=== PATIENT | female | born 1975 | race Caucasian/White ===

== ENCOUNTER 2023-02-15 00:09 | Day surgery (SDC) | payer OTHER, SELFPAY ==
--- NOTE | 2023-02-15 07:32 | P.PNAN_ITS ---
Anes - Initial Pre Proc Eval Procedure: Operation Date: 02/15/23 09:15 Proposed Procedures p Screening Colonoscopy - Sam Frost MD Date/Time: 02/15/23 07:32 Surgeon: Sam Frost MD Pre Op Diagnosis: neoplasm screening Patient Data Age: 48 Gender: F Height: 1.78 m Weight: 63.5 kg Allergies Allergy/AdvReac Type Severity Reaction Status Date / Time No Known Allergies Allergy Unverified 02/15/23 08:05 Home Medications Medication Instructions Recorded Confirmed Type Probiotic with Prebiotic 1 cap PO DAILY 02/10/23 02/10/23 History fluticasone propionate 50 1 - 2 spray intranasal PRN PRN 02/10/23 02/10/23 History mcg/actuation nasal Allergy Symptoms spray,suspension (Aller-Abhishek) montelukast 10 mg tablet 10 mg PO DAILY 02/10/23 02/10/23 History ssrjuhqaviai-Ju-hjen-minerals 1 tablet PO DAILY 02/10/23 02/10/23 History norethindrone 1.5 mg-ethinyl 1 tablet PO DAILY 02/10/23 02/10/23 History estradiol 30 mcg(21)/iron 75 mg(7) tablet (Microgestin Fe 1.5/30 (28)) omeprazole 20 mg tablet,delayed 20 mg PO DAILY 02/10/23 02/10/23 History release Patient hx anesthesia problems: none Family hx anesthesia problems: none Results Review: All pre-operative results and documents have been reviewed as part of the pre- operative evaluation. [facility] Past Medical History Medical History (Updated 02/12/23 @ 14:54 by Cody oS DO) GERD (gastroesophageal reflux disease) Surgical History Surgical History (Updated 02/12/23 @ 14:54 by Cody So DO) History of cholecystectomy Social History Social History Smoking status: Never smoker Alcohol intake: current Drinks per week: 3 Alcohol use details: BEERS/DRINKS Substance use: never Substance use type: does not use Living arrangements: with family Spiritual care concerns: No Anes - Eval Final PreProcedure Day of Procedure 02/15/23 07:32 Patient weight: normal Heart: regular rate and rhythm Lungs: clear to auscultation and normal air movement Airway: Mallampati scale class II Neurological: alert and oriented Last oral intake: >/= 8 hours ASA classification: II Emergent: no Anesthetic plan: proceed Anesthesia type and monitoring: general GIVS and standard monitoring Results Review: All pre-operative results and documents have been reviewed as part of the pre- operative evaluation. Informed Consent: The patient's anesthetic plan and its attendant risks and benefits were discussed with the patient/family/POA. Questions were solicited and answers provided to the satisfaction of the patient/family/POA.
[2023-02-15 08:06] VITALS: BP 123/40; PULSE 78; RESP 16; TEMP 36.2; O2SAT 100
--- NOTE | 2023-02-15 08:38 | P.HP_ITS ---
History of Present Illness History of Present Illness Consent: Risks, benefits, and alternatives have been discussed and questions answered. Patient agrees to proceed with procedure. Chief complaint: neoplasm screening Narrative: Francisca Rust is a 48 year old female Presents for screening colonoscopy. Patient's current weight appetite and bowel movements are normal. Patient denies abdominal pain. She has had no bleeding. Family history is noncontri butory. Review of Systems Review of Systems: Review of systems noncontributory. [facility] Past Medical History Medical History (Updated 02/15/23 @ 08:39 by Sam Frost MD) GERD (gastroesophageal reflux disease) Surgical History Surgical History (Updated 02/12/23 @ 14:54 by Cody So DO) History of cholecystectomy Social History Social History Smoking status: Never smoker Alcohol intake: current Drinks per week: 3 Alcohol use details: BEERS/DRINKS Substance use: never Substance use type: does not use Living arrangements: with family Spiritual care concerns: No Meds Home Medications and Allergies Home Medications Medication Instructions Recorded Confirmed Type Probiotic with Prebiotic 1 cap PO DAILY 02/10/23 02/10/23 History fluticasone propionate 50 1 - 2 spray intranasal PRN PRN 02/10/23 02/10/23 History mcg/actuation nasal Allergy Symptoms spray,suspension (Aller-Abhishek) montelukast 10 mg tablet 10 mg PO DAILY 02/10/23 02/10/23 History oumjmidbdrax-Cb-ceie-minerals 1 tablet PO DAILY 02/10/23 02/10/23 History norethindrone 1.5 mg-ethinyl 1 tablet PO DAILY 02/10/23 02/10/23 History estradiol 30 mcg(21)/iron 75 mg(7) tablet (Microgestin Fe 1.5/30 (28)) omeprazole 20 mg tablet,delayed 20 mg PO DAILY 02/10/23 02/10/23 History release Allergies Allergy/AdvReac Type Severity Reaction Status Date / Time No Known Allergies Allergy Unverified 02/15/23 08:05 Vital Signs Vital Signs - 24 hr 02/15/23 08:06 Temperature 97.1 F L Pulse Rate 78 Respiratory Rate 16 Blood Pressure 123/40 L Pulse Oximetry 100 Oxygen Delivery Room Air Exam Narrative: Physical exam reveals patient to be alert. Vital signs stable. HEENT exam is unremarkable. Patient is anicteric. Lungs are clear to auscultation and percussion. Heart is without murmur or extra sounds. Abdomen bowel sounds are present soft nontender with no organomegaly. Digital external rectal exam is normal. Assessment and Plan Assessment and plan (1) Encounter for screening colonoscopy: Code(s): Z12.11 - Encounter for screening for malignant neoplasm of colon Status: Acute Assessment and Plan: Patient presents for neoplasia screening colonoscopy. She appears to be at average risk for colon polyps. Further recommendations may be given after endoscopy.
[2023-02-15] MEDS: LACTATED RINGERS 1,000 ML 150 ML IV CONT (08:46)
[2023-02-15 09:41] VITALS: BP 93/47; PULSE 77; RESP 15; O2SAT 100
[2023-02-15 09:51] VITALS: BP 91/48; PULSE 71; RESP 23; O2SAT 100
[2023-02-15 10:01] VITALS: BP 105/50; PULSE 66; RESP 22; O2SAT 100
== END 2023-02-15 10:09 | disposition home or self-care (01) ==
PROVIDERS: PCP Family Medicine; Visit Provider Internal Medicine Gastroenterology
PROC: 0DJD8ZZ Inspection of Lower Intestinal Tract, Via Natural or Artificial Opening Endoscopic (ICD-10-PCS; CPT 45378; principal; 2023-02-15 09:15)
DX: Z12.11 Encounter for screening for malignant neoplasm of colon (principal); K64.8 Other hemorrhoids; K21.9 Gastro-esophageal reflux disease without esophagitis
CPT/HCPCS: 45378; J2704; J7120

== ENCOUNTER → 2023-04-26 11:29 | Outpatient (CLI) | payer OTHER, SELFPAY ==
--- NOTE | ~2023-04-26 | MM_ITS ---
EXAMINATION: MM screening roxana BI w rené HISTORY: Screening mammogram TECHNIQUE: Craniocaudal and mediolateral oblique 3-D tomosynthesis images were obtained and synthetic 2-D images were generated. CAD analysis was submitted and interpreted. COMPARISON: No prior mammogram is available for comparison at this institution. BREAST PARENCHYMAL COMPOSITION: The breasts are heterogeneously dense, which may obscure small masses . FINDINGS: There is mild asymmetry which is most likely benign fibroglandular asymmetry. Comparison wi th prior mammograms from [facility] is recommended. There are occasional benign calcifications of the left breast. No malignant calcification, reproducib le suspicious mass or architectural distortion, skin thickening or retraction of either breast is det ected. IMPRESSION: 1. Probable benign fibroglandular asymmetry 2. Comparison with prior mammograms is recommended to document stability BI-RADS Category 0: Incomplete: Needs additional imaging evaluation: Comparison with prior mammogram examinations Reviewed, dictated and finalized at location A.
== END ==
PROVIDERS: PCP Nurse Practitioner; Visit Provider Nurse Practitioner
DX: Z12.31 Encounter for screening mammogram for malignant neoplasm of breast (principal); R92.8 Other abnormal and inconclusive findings on diagnostic imaging of breast
CPT/HCPCS: 77063; 77067

== ENCOUNTER 2023-08-09 02:04 | Day surgery (SDC) | payer OTHER, SELFPAY ==
[2023-08-03 14:45] VITALS: BMI 21.4
--- NOTE | 2023-08-06 09:28 | SUR.OPER ---
Patient called regarding upcoming procedure. Message left on patient's voicemail regarding preop instructions, appointment times, and procedure prep.
--- NOTE | 2023-08-06 15:02 | PM.HPGS ---
History of Present Illness History of Present Illness Consent: Risks, benefits, and alternatives have been discussed and questions answered. Patient agrees to proceed with procedure. Chief complaint: GERD Narrative: Francisca Rust is a 48 year old female Referred for investigation of epigastric pain. This began when her mother became ill. She has avoided spicy foods. She is now taking omeprazole 40 mg per day. Review of Systems Review of Systems: All systems reviewed & are unremarkable except as noted in HPI and below PMFSH Past Medical History Medical History GERD (gastroesophageal reflux disease) Surgical History Surgical History History of cholecystectomy Social History Social History Smoking status: Never smoker Alcohol intake: never Drinks per week: 3 Alcohol use details: SOCIALLY Substance use: never Substance use type: does not use Living arrangements: with family Spiritual care concerns: No Meds Home Medications and Allergies Home Medications Medication Instructions Recorded Confirmed Type Probiotic with Prebiotic 1 cap PO DAILY 02/10/23 08/09/23 History fluticasone propionate 50 1 - 2 spray intranasal PRN PRN 02/10/23 08/09/23 History mcg/actuation nasal Allergy Symptoms spray,suspension (Aller-Abhishek) montelukast 10 mg tablet 10 mg PO DAILY 02/10/23 08/09/23 History bccrqfazltig-Ef-pvxa-minerals 1 tablet PO DAILY 02/10/23 08/09/23 History norethindrone 1.5 mg-ethinyl 1 tablet PO DAILY 02/10/23 08/09/23 History estradiol 30 mcg(21)/iron 75 mg(7) tablet (Microgestin Fe 1.5/30 (28)) omeprazole 20 mg tablet,delayed 20 mg PO DAILY 02/10/23 08/09/23 History release Allergies Allergy/AdvReac Type Severity Reaction Status Date / Time No Known Allergies Allergy Verified 08/09/23 12:29 Exam Const: General: alert Orientation/consciousness: patient oriented x3 Resp: Auscultation: clear to auscultation bilaterally Cardio: Rhythm: regular rhythm GI: GI Palp: Yes Soft to palpation and No Tenderness to palpation present (GI) Neuro: General: patient oriented x3 Assessment and Plan Assessment and plan (1) Epigastric pain: Code(s): R10.13 - Epigastric pain Status: Acute Assessment and Plan: EGD with possible biopsy or dilatation or cautery.
[2023-08-09 12:24] VITALS: BP 118/77; PULSE 76; RESP 18; TEMP 36.1; O2SAT 100; BMI 21.0
--- NOTE | 2023-08-09 12:33 | P.PNAN_ITS ---
Anes - Initial Pre Proc Eval Procedure: Operation Date: 08/09/23 13:30 Proposed Procedures p Esophagogastroduodenoscopy - Abner iMllan MD Date/Time: 08/09/23 12:33 Surgeon: Abner Millan MD Pre Op Diagnosis: GERD Patient Data Age: 48 Gender: F Height: 1.78 m Weight: 68 kg Allergies Allergy/AdvReac Type Severity Reaction Status Date / Time No Known Allergies Allergy Verified 08/09/23 12:29 Home Medications Medication Instructions Recorded Confirmed Type Probiotic with Prebiotic 1 cap PO DAILY 02/10/23 08/09/23 History fluticasone propionate 50 1 - 2 spray intranasal PRN PRN 02/10/23 08/09/23 History mcg/actuation nasal Allergy Symptoms spray,suspension (Aller-Abhishek) montelukast 10 mg tablet 10 mg PO DAILY 02/10/23 08/09/23 History ydxynxswbgyq-On-omyu-minerals 1 tablet PO DAILY 02/10/23 08/09/23 History norethindrone 1.5 mg-ethinyl 1 tablet PO DAILY 02/10/23 08/09/23 History estradiol 30 mcg(21)/iron 75 mg(7) tablet (Microgestin Fe 1.5/30 (28)) omeprazole 20 mg tablet,delayed 20 mg PO DAILY 02/10/23 08/09/23 History release Patient hx anesthesia problems: none Family hx anesthesia problems: none Results Review: All pre-operative results and documents have been reviewed as part of the pre- operative evaluation. [facility] Past Medical History Medical History (Updated 08/06/23 @ 15:03 by Abner Millan MD) GERD (gastroesophageal reflux disease) Surgical History Surgical History (Updated 02/12/23 @ 14:54 by Cody So DO) History of cholecystectomy Social History Social History Smoking status: Never smoker Alcohol intake: never Drinks per week: 3 Alcohol use details: SOCIALLY Substance use: never Substance use type: does not use Living arrangements: with family Spiritual care concerns: No Anes - Eval Final PreProcedure Day of Procedure 08/09/23 12:33 Patient weight: normal Heart: regular rate and rhythm Lungs: clear to auscultation Airway: Mallampati scale class II Neurological: alert and oriented Last oral intake: >/= 8 hours ASA classification: II Emergent: no Anesthetic plan: proceed Anesthesia type and monitoring: general GIVS and standard monitoring Results Review: All pre-operative results and documents have been reviewed as part of the pre- operative evaluation. Informed Consent: The patient's anesthetic plan and its attendant risks and benefits were discussed with the patient/family/POA. Questions were solicited and answers provided to the satisfaction of the patient/family/POA.
[2023-08-09] MEDS: LACTATED RINGERS 1,000 ML 150 ML IV CONT (12:40)
[2023-08-09 13:05] VITALS: BP 98/44; PULSE 73; RESP 18; O2SAT 98
[2023-08-09 13:15] VITALS: BP 103/60; PULSE 70; RESP 27; O2SAT 97
[2023-08-09 13:25] VITALS: BP 112/66; PULSE 61; RESP 18; O2SAT 100
== END 2023-08-09 13:31 | disposition home or self-care (01) ==
PROVIDERS: PCP Family Medicine; Visit Provider Internal Medicine Gastroenterology
PROC: 0DJ08ZZ Inspection of Upper Intestinal Tract, Via Natural or Artificial Opening Endoscopic (ICD-10-PCS; CPT 43235; principal; 2023-08-09 13:30)
DX: R10.13 Epigastric pain (principal); K21.9 Gastro-esophageal reflux disease without esophagitis
CPT/HCPCS: 43239; 88305; J2704; J7120

== ENCOUNTER → 2023-08-23 08:17 | Outpatient (CLI) | payer OTHER, SELFPAY ==
--- NOTE | ~2023-08-23 | CT_ITS ---
EXAMINATION: CT abdomen pelvis w con INDICATION: Diarrhea and abdominal pain TECHNIQUE: Computed tomographic images of the abdomen and pelvis were obtained after the administrati on of 100 cc of Omnipaque 350 intravenous contrast. The dose-length product (DLP) was 433.58 mGy-cm. Automated exposure control and iterative reconstruction technique were employed. COMPARISON: None available FINDINGS: Minimal dependent atelectasis is present in the lung bases. The heart size is normal. There is a 3.6 cm mass of the left hepatic lobe with interrupted peripheral nodular enhancement, consisten t with a hemangioma. No suspicious liver mass is identified. Changes of cholecystectomy are noted. Pu nctate calcifications in an otherwise normal spleen likely represent healed granulomatous disease. Th e pancreas and adrenal glands are normal. The kidneys are unremarkable. No pathologically enlarged ab dominal or pelvic lymph nodes are identified. No free intraperitoneal gas or evidence of bowel obstru ction. There is mild lumbar spondylosis. A moderate volume of colonic stool is present. Uterine fibro ids measuring up to 2.6 cm are noted. IMPRESSION: 1. No CT correlate for the patient's symptoms. Reviewed, dictated and finalized at location B. P MANAGER
== END ==
PROVIDERS: PCP Family Medicine; Visit Provider Family Medicine
DX: R19.7 Diarrhea, unspecified (principal)
CPT/HCPCS: 74177; Q9967

== ENCOUNTER 2024-12-29 06:53 | Outpatient (CLI) | payer OTHER, SELFPAY ==
--- NOTE | ~2024-12-29 | XR_ITS ---
XR hip BI 2V w AP pelvis 12/29/2024 07:08 Indication: Hip pain Procedure: AP pelvis and 2 views each Comparison: No prior studies for comparison. Findings: Pelvic rings are intact. Sacral foramen are symmetric. No fracture, subluxation or dislocat ion. No soft tissue abnormality. No foreign bodies. Impression: 1: No significant bone or joint abnormality. Reviewed, dictated and finalized at location A. Impression: 1: No significant bone or joint abnormality.
== END 2024-12-29 06:54 | disposition home or self-care (01) ==
PROVIDERS: PCP Family Medicine; Visit Provider Family Medicine
DX: M25.551 Pain in right hip (principal); M25.552 Pain in left hip
CPT/HCPCS: 73521

== ENCOUNTER 2025-03-16 07:17 | Outpatient (CLI) | payer OTHER, SELFPAY ==
--- NOTE | ~2025-03-16 | MM_ITS ---
EXAMINATION: MM screening roxana BI w rené HISTORY: Screening mammogram TECHNIQUE: Craniocaudal and mediolateral oblique 3-D tomosynthesis images were obtained and synthetic 2-D images were generated. CAD analysis was submitted and interpreted. COMPARISON: 04/26/2023, 01/23/2022, 01/16/2021 BREAST PARENCHYMAL COMPOSITION:Dense: The breasts are heterogeneously dense, which may obscure small masses. FINDINGS: Stable low-density mass is at the left breast. There is a new asymmetry in the outer right breast. No suspicious microcalcifications. IMPRESSION: Outer right breast asymmetry. Spot compression views and possibly ultrasound are recommended for furt her evaluation. BI-RADS Category 0: Incomplete: Needs additional imaging evaluation. Reviewed, dictated and finalized at [facility]. IMPRESSION: Outer right breast asymmetry. Spot compression views and possibly ultrasound ar e recommended for further evaluation. BI-RADS Category 0: Incomplete: Needs additional imaging evaluation.
== END 2025-03-16 07:18 | disposition home or self-care (01) ==
LOC: MICIMG 07:17
PROVIDERS: PCP Family Medicine; Visit Provider Nurse Practitioner
DX: Z12.31 Encounter for screening mammogram for malignant neoplasm of breast (principal); R92.8 Other abnormal and inconclusive findings on diagnostic imaging of breast
CPT/HCPCS: 77063; 77067

== ENCOUNTER 2025-05-21 09:14 | Outpatient (CLI) | payer OTHER, SELFPAY ==
--- NOTE | ~2025-05-21 | MMUS_ITS ---
EXAMINATION: US breast RT limited, MM diagnostic roxana RT w rené HISTORY: Inconclusive mammogram TECHNIQUE: Additional images of the right breast]] were performed using full field digital mammography. 3-D tomosynthesis were also obtained and synthetic 2- D images were generated. CAD analysis was submitted and interpreted. High- resolution right breast ultrasound was performed.] ] COMPARISON: Mammograms from 03/16/2025 and 04/26/2023 BREAST PARENCHYMAL COMPOSITION: The breasts are heterogeneously dense, which may obscure small masses. FINDINGS: MAMMOGRAPHIC FINDINGS: Redemonstration of asymmetry in the outer right breast, middle depth. No convincing sonographic correlate. The finding is probably benign. ULTRASOUND: There is a 10 x 5 x 4 mm hypoechoic cyst versus solid mass in the right breast at the 12:00 position middle depth, 3 cm from nipple. The finding is wider than tall. Margins are well-circumscribed. No internal color Doppler flow. No posterior acoustic shadowing. The finding is probably benign. There is an 8 x 7 x 6 mm hypoechoic cyst versus solid mass in the right breast in the 12:00 position 2 cm from the nipple. The finding is wider than tall. Margins are partially circumscribed. No internal color Doppler flow. No posterior acoustic shadowing. The findings probably benign. There is a 4 x 4 by 3 mm hypoechoic cyst versus solid mass in the right breast at the 9:00 position 3 cm from the nipple. Margins are partially circumscribed. No internal color Doppler flow. No posterior acoustic shadowing. The findings probably benign. IMPRESSION/RECOMMENDATION: 1. Probably benign findings in the right breast. A diagnostic right breast mammogram and a diagnostic right breast in 6 months is recommended. BI-RADS 3-Probably benign-Short interval follow-up suggested. Reviewed, dictated and finalized at location Q. IMPRESSION/RECOMMENDATION: 1. Probably benign findings in the right breast. A diagnostic right breast mamm ogram and a diagnostic right breast in 6 months is recommended. BI-RADS 3-Probably benign-Short interval follow-up suggested. IMPRESSION/RECOMMENDATION: 1. Probably benign findings in the right breast. A diagnostic right breast mamm ogram and a diagnostic right breast in 6 months is recommended. BI-RADS 3-Probably benign-Short interval follow-up suggested.
== END 2025-05-21 09:15 | disposition home or self-care (01) ==
LOC: MICIMG 09:14
PROVIDERS: PCP Family Medicine; Visit Provider Obstetrics & Gynecology Gynecology
DX: R92.8 Other abnormal and inconclusive findings on diagnostic imaging of breast (principal)
CPT/HCPCS: 76642; 77061; 77065; G0279

== ENCOUNTER 2025-08-20 08:17 | Outpatient (CLI) | payer OTHER, SELFPAY ==
--- NOTE | ~2025-08-20 | CT_ITS ---
EXAMINATION: CT diagnostic chest wo con DATE: 08/20/2025 08:30 INDICATION: Pneumothorax TECHNIQUE: Computed tomography (CT) of the chest was performed without intravenous contrast. Additional 3D reconstructions utilizing coronal maximum intensity projection (MIP) were performed. Automated exposure control and iterative reconstruction technique were employed. The dose-length product was 17 0.94 mGy-cm. COMPARISON: None FINDINGS: Tiny calcified nodules in the right upper lobe and calcified right hilar and mediastinal lymph nodes consistent with old granulomatous disease. Lungs are otherwise clear with no pneumonia, pulmonary edema or other pulmonary infiltrates. No pleural effusion or pneumothorax. Thoracic aorta is normal in c aliber. No pathologically enlarged thoracic lymphadenopathy. Cholecystectomy clips at the gallbladder fossa. Mild to moderate thoracic spondylosis with chronic appearing minimal anterior wedging of several mid to lower thoracic vertebral bodies. IMPRESSION: 1. No pneumothorax or other acute cardiopulmonary disease. Reviewed, dictated and finalized at location A. [employer] OFFICER
== END 2025-08-20 08:18 | disposition home or self-care (01) ==
PROVIDERS: PCP Family Medicine; Visit Provider Family Medicine
DX: J93.9 Pneumothorax, unspecified (principal)
CPT/HCPCS: 71250

== ENCOUNTER 2025-08-27 14:17 | Outpatient (CLI) | payer OTHER, SELFPAY ==
--- NOTE | ~2025-08-27 | CT_ITS ---
EXAMINATION: CT abdomen w con DATE: 08/27/2025 14:49 INDICATION: Hemangioma of the intra-abdominal structures. TECHNIQUE: Computed tomography (CT) of the abdomen was performed with 100 mL Omnipaque 350 intravenous contrast. Automated exposure control and iterative reconstruction technique were employed. The dose-length product was 197.63 mGy-cm. COMPARISON: CT abdomen and pelvis 08/23/2023 FINDINGS: The visualized portions of the lung bases demonstrate mild atelectasis. No pleural effusion. The heart size is normal. No pericardial effusion. There is a 4.8 cm mass in left hepatic lobe that demonstrates interrupted peripheral puddling of contrast, consistent with a hemangioma. There are changes of cholecystectomy. Calcifications in the spleen are consistent with old granulomatous disease. The pancreas, adrenal glands, and kidneys are normal. There are no dilated loops of bowel. There are no pathologically enlarged lymph nodes. There is no free intraperitoneal fluid. There is mild thoracic and lumbar spondylosis. IMPRESSION: 1. 4.8 cm hemangioma in the liver, stable from 08/23/2023. Reviewed, dictated and finalized at location E. INIST
== END 2025-08-27 14:18 | disposition home or self-care (01) ==
LOC: MICIMG 14:18
PROVIDERS: PCP Family Medicine; Visit Provider Family Medicine
DX: D18.03 Hemangioma of intra-abdominal structures (principal)
CPT/HCPCS: 74160; Q9967